=== PATIENT | male | born 1975 | race Caucasian/White ===

== ENCOUNTER → 2021-03-07 | Outpatient (CLI) | payer OTHER ==
--- NOTE | 2021-03-07 10:43 | RAD ---
Study: XR KNEE 3 VIEWS_RT Indication: Right knee pain. Comparison: None. Findings: No acute fracture. Alignment is within normal limits. Minimal joint space narrowing at the medial fem orotibial compartment. Tiny joint line osteophytes as well as a small osteophyte at the superior avalos llar pole. Probable small knee joint effusion. Grossly intact extensor mechanism. Impression: 1. No acute osseous abnormality. 2. Mild early degenerative changes at the medial and patellofemoral compartments with minimal medial compartment joint space narrowing. 3. Probable small knee joint effusion. Electronically signed by: RICCARDO ALMANZAR MD (03/07/2021 10:40 AM) [facility]
== END ==
LOC: RAD 10:17
PROVIDERS: ATTEND Nurse Practitioner Family
DX: M17.11 Unilateral primary osteoarthritis, right knee (principal); M25.461 Effusion, right knee
CPT/HCPCS: 73562